=== PATIENT | male | born 1955 | race Caucasian/White ===

== ENCOUNTER 2023-06-26 16:10 | Emergency (ER) | payer SELFPAY ==
[~2023-06-26] VITALS: Ht 170.2 cm; Wt 90.7 kg
[2023-06-26 16:13] VITALS: BP_SYST 132; PULSE 100; RESP 19; TEMP 97; O2SAT 96
[2023-06-26] MEDS ORDERED: NOR10 PO (16:35)
[2023-06-26] MEDS ORDERED: LIP40 PO (16:35)
[2023-06-26] MEDS ORDERED: GLIP5TAB26 PO (16:35)
[2023-06-26] MEDS ORDERED: ASPI-1393 PO (16:35)
[2023-06-26] MEDS ORDERED: PIOG30TA70 PO (16:35)
[2023-06-26] MEDS ORDERED: METO50TA7 PO (16:35)
[2023-06-26] MEDS ORDERED: ACET325T53 PO (16:35)
[2023-06-26] MEDS ORDERED: LOSA100T23 PO (16:35)
[2023-06-26] MEDS ORDERED: METF-863 PO (16:35)
[2023-06-26 16:58] VITALS: BP_SYST 132; PULSE 100; RESP 19; TEMP 97; O2SAT 96
== END 2023-06-26 16:51 ==
LOC: SED 16:10
DX: Z76.0 Encounter for issue of repeat prescription (principal); E11.9 Type 2 diabetes mellitus without complications; I10 Essential (primary) hypertension; Z79.899 Other long term (current) drug therapy
CPT/HCPCS: 99283

== ENCOUNTER 2023-07-24 12:42 | Emergency (ER) | payer OTHER ==
[~2023-07-24] VITALS: Ht 170.2 cm; Wt 90.7 kg
[~2023-07-24 12:42] MED LIST: ACET325T53 PO; ASPI-1393 PO; GLIP5TAB26 PO; LIP40 PO; LOSA100T24 PO; METF-863 PO; METO50TA7 PO; NOR10 PO; PIOG30TA70 PO
[2023-07-24 12:44] VITALS: BP_SYST 135; PULSE 54; RESP 18; TEMP 98; O2SAT 97
[2023-07-24] MEDS ORDERED: INSULIN REGULAR, HUMAN 100 UNITS/ML, 3 ML VIAL (humuLIN R) SUBCUT ONE (13:15)
[2023-07-24] MEDS ORDERED: INSULIN REGULAR, HUMAN 10 UNITS/0.1 ML, 3 ML VIAL IVP ONE (13:15)
[2023-07-24] MEDS ORDERED: LOSA-415 PO (13:17)
[2023-07-24] MEDS ORDERED: ASPI-1393 PO (13:17)
[2023-07-24] MEDS ORDERED: ATOR40TA68 PO (13:17)
[2023-07-24] MEDS ORDERED: GLIP5TAB26 PO (13:17)
[2023-07-24] MEDS ORDERED: METO-442 PO (13:17)
[2023-07-24] MEDS ORDERED: METF-379 PO (13:17)
[2023-07-24] MEDS ORDERED: NOR10 PO (13:17)
[2023-07-24] MEDS ORDERED: PIOG30TA70 PO (13:17)
[2023-07-24] MEDS ORDERED: ACET-2634 PO (13:17)
[2023-07-24 13:36] LABS: BASOPHILS # (AUTO) 0.1 K/uL (0.0-0.2); BASOPHILS % (AUTO) 0.8 % (0.0-2.0); EOSINOPHILS # (AUTO) 0.5 K/uL (0.0-0.4); EOSINOPHILS % (AUTO) 3.9 % (0.0-4.0); HEMATOCRIT 46.2 % (36-54); HEMOGLOBIN 15.6 g/dL (14.0-18.0); LYMPHOCYTES # (AUTO) 2.1 K/uL (1.0-5.5); MEAN CORPUSCULAR HEMOGLOBIN 29 pg (27-31); MEAN CORPUSCULAR HGB CONC 34 % (32-36); MEAN CORPUSCULAR VOLUME 87 fL (79.0-98.0); MONOCYTES # (AUTO) 0.7 K/uL (0.0-1.0); MONOCYTES % (AUTO) 6.1 % (1.7-9.3); NEUTROPHILS # (AUTO) 8.3 K/uL (1.8-7.7); NEUTROPHILS % (AUTO) 71.2 % (40.0-70.0); PLATELET COUNT (AUTO) 292 K/uL (130-430); RED CELL DISTRIBUTION WIDTH 12.5 % (9.0-15.0); WHITE BLOOD COUNT (AUTO) 11.7 K/uL (4.8-10.8)
[2023-07-24 13:38] LABS: ACETONE, SERUM NEGATIVE (NEGATIVE)
[2023-07-24 13:42] LABS: ANION GAP 10 (5-15); CALCIUM 8.4 mg/dL (8.4-11.0); CARBON DIOXIDE 23 mmol/L (23-29); CHLORIDE 97 mmol/L (98-107); CREATININE 1.09 mg/dL (0.55-1.30); GFR AFRICAN AMERICAN 87 mL/min (>90); GLUCOSE 392 mg/dL (74-106); POTASSIUM 4.6 mmol/L (3.5-5.1); SODIUM SERUM 130 mmol/L (136-145); UREA NITROGEN, BLOOD 21 mg/dL (8-21)
[2023-07-24 13:47] LABS: ALANINE AMINOTRANSFERASE 36 U/L (12-78); ALBUMIN 3.7 g/dL (3.4-4.8); ASPARTATE AMINOTRANSFERASE 16 U/L (10-37); TOTAL BILIRUBIN 0.5 mg/dL (0.0-1.0); TOTAL PROTEIN, SERUM 7.5 g/dL (6.4-8.3)
== END 2023-07-24 14:10 ==
LOC: SED 12:42
DX: Z02.89 Encounter for other administrative examinations (principal); E11.65 Type 2 diabetes mellitus with hyperglycemia; R73.9 Hyperglycemia, unspecified; I10 Essential (primary) hypertension; E78.5 Hyperlipidemia, unspecified; Z79.899 Other long term (current) drug therapy
CPT/HCPCS: 99283; 80053; 82009; 85025; 36415; 96372; 83605; J1815 ×2

== ENCOUNTER 2023-08-21 15:45 | Emergency (ER) | payer OTHER ==
[~2023-08-21] VITALS: Ht 175.3 cm; Wt 93.0 kg
[2023-08-21 15:45] VITALS: BP_SYST 145; PULSE 61; RESP 18; TEMP 97.8; O2SAT 96
[~2023-08-21 15:45] MED LIST changes: +ACET-2634 PO; +ATOR40TA68 PO; +LOSA-415 PO; +METF-379 PO; +METO-442 PO
[2023-08-21] MEDS ORDERED: NOR10 PO ×2 (17:00→18:32)
[2023-08-21] MEDS ORDERED: LOSA-415 PO (17:00)
[2023-08-21] MEDS ORDERED: GLIP5TAB26 PO ×2 (17:00→18:32)
[2023-08-21] MEDS ORDERED: METF-834 PO (17:00)
[2023-08-21] MEDS ORDERED: METO50TA7 PO ×2 (17:00→18:32)
[2023-08-21] MEDS ORDERED: LIP40 PO ×2 (17:00→18:32)
[2023-08-21 17:27] VITALS: BP_SYST 145; PULSE 61; RESP 18; TEMP 97.8; O2SAT 96
[2023-08-21] MEDS ORDERED: ASPI-1393 PO (18:32)
[2023-08-21] MEDS ORDERED: METF-863 PO (18:32)
[2023-08-21] MEDS ORDERED: LOSA100T24 PO (18:32)
[2023-08-21] MEDS ORDERED: PIOG30TA70 PO (18:32)
[2023-08-21] MEDS ORDERED: ACET325T53 PO (18:32)
== END 2023-08-21 17:26 ==
LOC: SED 15:45
DX: Z76.0 Encounter for issue of repeat prescription (principal); E11.9 Type 2 diabetes mellitus without complications; I10 Essential (primary) hypertension; E78.5 Hyperlipidemia, unspecified; F17.200 Nicotine dependence, unspecified, uncomplicated; Z79.899 Other long term (current) drug therapy
CPT/HCPCS: 99283

== ENCOUNTER 2023-09-18 12:44 | Emergency (ER) | payer OTHER ==
[~2023-09-18] VITALS: Ht 175.3 cm; Wt 93.0 kg
[2023-09-18 12:44] VITALS: BP_SYST 126; PULSE 60; RESP 19; TEMP 97.1; O2SAT 96
[~2023-09-18 12:44] MED LIST changes: +METF-834 PO
[2023-09-18] MEDS ORDERED: ASPI-1393 PO (13:11)
[2023-09-18] MEDS ORDERED: NOR10 PO (13:11)
[2023-09-18] MEDS ORDERED: LOSA-415 PO (13:11)
[2023-09-18] MEDS ORDERED: ACET325T53 PO (13:11)
[2023-09-18] MEDS ORDERED: LIP40 PO (13:11)
[2023-09-18] MEDS ORDERED: METF-863 PO (13:11)
[2023-09-18] MEDS ORDERED: PIOG30TA70 PO (13:11)
[2023-09-18] MEDS ORDERED: GLIP5TAB26 PO (13:11)
[2023-09-18] MEDS ORDERED: METO50TA7 PO (13:11)
[2023-09-18 13:35] VITALS: BP_SYST 126; PULSE 60; RESP 19; TEMP 97.1; O2SAT 96
== END 2023-09-18 13:35 ==
LOC: SED 12:44
DX: Z02.89 Encounter for other administrative examinations (principal); Z76.0 Encounter for issue of repeat prescription; E11.9 Type 2 diabetes mellitus without complications; I10 Essential (primary) hypertension; E78.5 Hyperlipidemia, unspecified; Z79.899 Other long term (current) drug therapy
CPT/HCPCS: 99283

== ENCOUNTER 2023-10-16 13:05 | Emergency (ER) | payer OTHER ==
[~2023-10-16] VITALS: Ht 175.3 cm; Wt 79.4 kg
[2023-10-16 13:05] VITALS: BP_SYST 150; PULSE 96; RESP 19; TEMP 97.5; O2SAT 96
[2023-10-16] MEDS ORDERED: LOSA100T24 PO (13:44)
[2023-10-16] MEDS ORDERED: PIOG30TA70 PO (13:44)
[2023-10-16] MEDS ORDERED: ASPI-1393 PO (13:44)
[2023-10-16] MEDS ORDERED: NOR10 PO (13:44)
[2023-10-16] MEDS ORDERED: ATOR40TA68 PO (13:44)
[2023-10-16] MEDS ORDERED: METF-863 PO (13:44)
== END 2023-10-16 13:56 ==
LOC: SED 13:05
DX: E11.9 Type 2 diabetes mellitus without complications (principal); I10 Essential (primary) hypertension; Z76.0 Encounter for issue of repeat prescription; Z79.84 Long term (current) use of oral hypoglycemic drugs; Z79.899 Other long term (current) drug therapy
CPT/HCPCS: 99283

== ENCOUNTER 2023-11-13 13:28 | Emergency (ER) | payer OTHER ==
[~2023-11-13] VITALS: Ht 170.2 cm; Wt 81.6 kg
[2023-11-13 13:30] VITALS: BP_SYST 135; PULSE 61; RESP 19; TEMP 98; O2SAT 61
[2023-11-13] MEDS ORDERED: NOR10 PO (14:37)
[2023-11-13] MEDS ORDERED: LIP40 PO (14:37)
[2023-11-13] MEDS ORDERED: PIOG30TA70 PO (14:37)
[2023-11-13] MEDS ORDERED: ACET325T PO (14:37)
[2023-11-13] MEDS ORDERED: ASPI-1393 PO (14:37)
[2023-11-13] MEDS ORDERED: METO50TA7 PO (14:37)
[2023-11-13] MEDS ORDERED: GLIP-201 PO (14:37)
== END 2023-11-13 14:48 ==
LOC: SED 13:28
DX: Z76.0 Encounter for issue of repeat prescription (principal); E88.810 Metabolic syndrome; I10 Essential (primary) hypertension; Z79.899 Other long term (current) drug therapy
CPT/HCPCS: 99283

== ENCOUNTER 2023-12-12 12:35 | Emergency (ER) | payer OTHER ==
[~2023-12-12] VITALS: Ht 177.8 cm; Wt 90.7 kg
[2023-12-12 12:35] VITALS: BP_SYST 135; PULSE 53; RESP 17; TEMP 97.1; O2SAT 100
[~2023-12-12 12:35] MED LIST changes: +ACET325T PO; +GLIP-201 PO
[2023-12-12] MEDS ORDERED: ASPI-1393 PO (12:55)
[2023-12-12] MEDS ORDERED: PIOG30TA70 PO (12:55)
[2023-12-12] MEDS ORDERED: METO50TA7 PO (12:55)
[2023-12-12] MEDS ORDERED: LOSA-415 PO (12:55)
[2023-12-12] MEDS ORDERED: ACET325T PO (12:55)
[2023-12-12] MEDS ORDERED: GLIP5TAB26 PO (12:55)
[2023-12-12] MEDS ORDERED: NOR10 PO (12:55)
[2023-12-12] MEDS ORDERED: LIP40 PO (12:55)
[2023-12-12] MEDS ORDERED: METF-518 PO (12:55)
== END 2023-12-12 13:13 ==
LOC: SED 12:35
DX: Z76.0 Encounter for issue of repeat prescription (principal); E11.9 Type 2 diabetes mellitus without complications; I10 Essential (primary) hypertension; E78.5 Hyperlipidemia, unspecified; Z79.899 Other long term (current) drug therapy
CPT/HCPCS: 99283

== ENCOUNTER 2024-01-09 12:47 | Emergency (ER) | payer OTHER ==
[~2024-01-09] VITALS: Ht 177.8 cm; Wt 90.7 kg
[~2024-01-09 12:47] MED LIST changes: +METF-518 PO
[2024-01-09 12:56] VITALS: BP_SYST 139; PULSE 74; RESP 19; TEMP 98.4; O2SAT 99
[2024-01-09] MEDS ORDERED: ACET325T53 PO (15:08)
[2024-01-09] MEDS ORDERED: LIP40 PO (15:08)
[2024-01-09] MEDS ORDERED: NOR10 PO (15:08)
[2024-01-09] MEDS ORDERED: GLIP-201 PO (15:08)
[2024-01-09] MEDS ORDERED: METO50TA7 PO (15:08)
[2024-01-09] MEDS ORDERED: ASPI-1393 PO (15:08)
[2024-01-09] MEDS ORDERED: LOSA100T24 PO (15:08)
[2024-01-09] MEDS ORDERED: PIOG30TA70 PO (15:08)
[2024-01-09] MEDS ORDERED: METF-518 PO (15:08)
[2024-01-09 15:19] VITALS: BP_SYST 129; PULSE 56; RESP 18; TEMP 97.6; O2SAT 97
[2024-01-09] MEDS ORDERED: METF-863 PO (17:11)
== END 2024-01-09 15:18 ==
LOC: SED 12:47
DX: Z76.0 Encounter for issue of repeat prescription (principal); E11.9 Type 2 diabetes mellitus without complications; I10 Essential (primary) hypertension; E78.5 Hyperlipidemia, unspecified; Z79.899 Other long term (current) drug therapy
CPT/HCPCS: 99283

== ENCOUNTER 2024-02-06 12:55 | Emergency (ER) | payer OTHER ==
[~2024-02-06] VITALS: Ht 175.3 cm; Wt 90.7 kg
[~2024-02-06 12:55] MED LIST changes: -METF-518 PO
[2024-02-06 12:56] VITALS: BP_SYST 128; PULSE 57; RESP 19; TEMP 98; O2SAT 99
[2024-02-06] MEDS ORDERED: ASPI-1155 PO (13:16)
== END 2024-02-06 13:29 ==
LOC: SED 12:55
DX: M72.2 Plantar fascial fibromatosis (principal); Z76.0 Encounter for issue of repeat prescription; I10 Essential (primary) hypertension; E11.9 Type 2 diabetes mellitus without complications; E78.5 Hyperlipidemia, unspecified
CPT/HCPCS: 99283

== ENCOUNTER 2024-03-04 12:35 | Emergency (ER) | payer OTHER ==
[~2024-03-04] VITALS: Ht 177.8 cm; Wt 88.5 kg
[~2024-03-04 12:35] MED LIST changes: +ASPI-1155 PO
[2024-03-04 12:38] VITALS: BP_SYST 107; PULSE 64; RESP 18; TEMP 98.3; O2SAT 96
[2024-03-04 13:05] VITALS: BP_SYST 107; PULSE 64; RESP 18; TEMP 98.3; O2SAT 96
== END 2024-03-04 13:09 ==
LOC: SED 12:35
DX: Z76.0 Encounter for issue of repeat prescription (principal); I10 Essential (primary) hypertension; E11.9 Type 2 diabetes mellitus without complications; E78.5 Hyperlipidemia, unspecified
CPT/HCPCS: 99283

== ENCOUNTER 2024-04-01 12:54 | Emergency (ER) | payer OTHER ==
[~2024-04-01] VITALS: Ht 175.3 cm; Wt 88.5 kg
[2024-04-01 12:56] VITALS: BP_SYST 109; PULSE 60; RESP 18; TEMP 98.3; O2SAT 98
[2024-04-01] MEDS ORDERED: METO50TA7 PO (13:15)
[2024-04-01] MEDS ORDERED: METF-863 PO (13:15)
[2024-04-01] MEDS ORDERED: LOSA-415 PO (13:15)
[2024-04-01] MEDS ORDERED: NOR10 PO (13:15)
[2024-04-01] MEDS ORDERED: PIOG30TA70 PO (13:15)
[2024-04-01] MEDS ORDERED: LIP40 PO (13:15)
== END 2024-04-01 13:25 ==
LOC: SED 12:54
DX: I10 Essential (primary) hypertension (principal); E11.9 Type 2 diabetes mellitus without complications; Z76.0 Encounter for issue of repeat prescription; E78.5 Hyperlipidemia, unspecified; Z79.899 Other long term (current) drug therapy; Z79.2 Long term (current) use of antibiotics
CPT/HCPCS: 99283

== ENCOUNTER 2024-04-30 11:53 | Emergency (ER) | payer OTHER ==
[~2024-04-30] VITALS: Ht 175.3 cm; Wt 88.5 kg
[2024-04-30 11:53] VITALS: BP_SYST 109; PULSE 85; RESP 19; TEMP 97.2; O2SAT 99
[2024-04-30] MEDS ORDERED: ATOR40TA68 PO (12:04)
[2024-04-30] MEDS ORDERED: ASPI-1393 PO (12:04)
== END 2024-04-30 12:10 | disposition home or self-care (01) ==
LOC: SED 11:53
DX: E11.9 Type 2 diabetes mellitus without complications (principal); Z76.0 Encounter for issue of repeat prescription; I10 Essential (primary) hypertension; E78.5 Hyperlipidemia, unspecified; Z79.899 Other long term (current) drug therapy; Z79.2 Long term (current) use of antibiotics; Z79.82 Long term (current) use of aspirin
CPT/HCPCS: 99283

== ENCOUNTER 2024-05-27 11:46 | Emergency (ER) | payer OTHER ==
[~2024-05-27] VITALS: Ht 175.3 cm; Wt 88.5 kg
[2024-05-27 11:46] VITALS: BP_SYST 120; PULSE 56; RESP 18; TEMP 97.3; O2SAT 97
[2024-05-27] MEDS ORDERED: LOSA-415 PO (11:55)
[2024-05-27] MEDS ORDERED: METO-308 PO (11:55)
[2024-05-27] MEDS ORDERED: PIOG30TA70 PO (11:55)
== END 2024-05-27 11:59 ==
LOC: SED 11:46
DX: Z13.1 Encounter for screening for diabetes mellitus (principal); Z76.0 Encounter for issue of repeat prescription; E11.9 Type 2 diabetes mellitus without complications; I10 Essential (primary) hypertension; E78.5 Hyperlipidemia, unspecified
CPT/HCPCS: 99283

== ENCOUNTER 2024-06-25 11:42 | Emergency (ER) | payer OTHER ==
[~2024-06-25] VITALS: Ht 175.3 cm; Wt 88.5 kg
[2024-06-25 11:42] VITALS: BP_SYST 112; PULSE 50; RESP 18; TEMP 97; O2SAT 98
[~2024-06-25 11:42] MED LIST changes: +METO-308 PO
== END 2024-06-25 11:57 ==
LOC: SED 11:42
DX: Z02.89 Encounter for other administrative examinations (principal); Z76.0 Encounter for issue of repeat prescription
CPT/HCPCS: 99283

== ENCOUNTER 2024-07-22 10:55 | Emergency (ER) | payer OTHER ==
[~2024-07-22] VITALS: Ht 175.3 cm; Wt 88.5 kg
[2024-07-22 11:22] VITALS: BP_SYST 123; PULSE 51; RESP 16; TEMP 97; O2SAT 97
[2024-07-22] MEDS ORDERED: ASPI-1393 PO (12:31)
[2024-07-22] MEDS ORDERED: LOSA-415 PO (12:31)
[2024-07-22] MEDS ORDERED: LIP40 PO (12:31)
[2024-07-22] MEDS ORDERED: PIOG30TA70 PO (12:31)
[2024-07-22] MEDS ORDERED: GLIP5TAB26 PO (12:31)
[2024-07-22] MEDS ORDERED: METO50TA7 PO (12:31)
[2024-07-22] MEDS ORDERED: NOR10 PO (12:31)
[2024-07-22 12:58] VITALS: BP_SYST 119; PULSE 54; RESP 16; TEMP 97; O2SAT 97
== END 2024-07-22 12:57 | disposition home or self-care (01) ==
LOC: SED 10:55
DX: Z02.89 Encounter for other administrative examinations (principal); Z76.0 Encounter for issue of repeat prescription; E11.9 Type 2 diabetes mellitus without complications; I10 Essential (primary) hypertension; E78.5 Hyperlipidemia, unspecified; Z79.899 Other long term (current) drug therapy; Z79.2 Long term (current) use of antibiotics; Z79.82 Long term (current) use of aspirin
CPT/HCPCS: 82948; 99283

== ENCOUNTER 2024-08-19 10:56 | Emergency (ER) | payer OTHER ==
[~2024-08-19] VITALS: Ht 175.3 cm; Wt 88.5 kg
[2024-08-19 10:56] VITALS: BP_SYST 114; PULSE 51; RESP 18; TEMP 97.2; O2SAT 98
[2024-08-19] MEDS ORDERED: PIOG30TA70 PO (11:12)
[2024-08-19] MEDS ORDERED: NOR10 PO (11:12)
[2024-08-19] MEDS ORDERED: LIP40 PO (11:12)
[2024-08-19] MEDS ORDERED: METO50TA7 PO (11:12)
[2024-08-19] MEDS ORDERED: LOSA-415 PO (11:12)
[2024-08-19] MEDS ORDERED: GLIP5TAB26 PO (11:12)
== END 2024-08-19 11:34 ==
LOC: SED 10:56
DX: E11.9 Type 2 diabetes mellitus without complications (principal); I10 Essential (primary) hypertension; Z76.0 Encounter for issue of repeat prescription; E78.5 Hyperlipidemia, unspecified; Z86.73 Personal history of transient ischemic attack (TIA), and cerebral infarction without residual deficits; Z79.899 Other long term (current) drug therapy; Z79.84 Long term (current) use of oral hypoglycemic drugs; Z79.82 Long term (current) use of aspirin
CPT/HCPCS: 99283